=== PATIENT | male | born 1995 | race Hispanic/Latino ===

== ENCOUNTER 2016-07-09 11:39 | Emergency (ER) | payer OTHER ==
[~2016-07-09] VITALS: Ht 172.7 cm; Wt 65.6 kg
[2016-07-09 14:28] VITALS: BP 110/70
== END 2016-07-09 14:29 | disposition home or self-care (01) ==
LOC: RME 11:39 → EME 11:39 → RME 14:29
DX: G43.909 Migraine, unspecified, not intractable, without status migrainosus (principal); M54.2 Cervicalgia; M54.5 Low back pain; R20.2 Paresthesia of skin
CPT/HCPCS: 99281; 99284; J1885

== ENCOUNTER 2017-04-15 08:13 | Emergency (ER) | payer SELFPAY ==
[~2017-04-15] VITALS: Ht 172.7 cm; Wt 66.2 kg
[2017-04-15] MEDS ORDERED: MEDROL DOSEPAK4 MG PO (09:49)
[2017-04-15] MEDS ORDERED: PEPCID20 MG PO (09:49)
[2017-04-15 09:56] VITALS: BP 145/83
== END 2017-04-15 09:56 | disposition home or self-care (01) ==
LOC: EME 08:13
DX: T78.40XA Allergy, unspecified, initial encounter (principal); X58.XXXA Exposure to other specified factors, initial encounter; R20.0 Anesthesia of skin; R51 Headache
CPT/HCPCS: 99281; 99284; J7512